=== PATIENT | male | born 1980 | race Caucasian/White ===

== ENCOUNTER 2017-06-30 20:21 | Emergency (ER) | payer OTHER ==
[2017-06-30] MEDS ORDERED: MORPHINE IM ONE (20:42)
[2017-06-30] MEDS ORDERED: ZOFRAN ODT PO ONE (20:42)
[2017-06-30 21:07] LABS: Basophils % (Auto) 0.3 % (0.0-1.8); Eosinophils % (Auto) 0.3 % (0.0-4.3); Hematocrit 45.5 % (35.5-45.6); Hemoglobin 15.3 gm/dl (11.8-15.2); Lymphocytes # (Auto) 3.2 K/mm3 (1.2-5.4); Lymphocytes % (Auto) 34.1 % (13.4-35.0); Mean Corpuscular HGB Conc 34 % (32-34); Mean Corpuscular Hemoglobin 31 pg (28-32); Mean Corpuscular Volume 92 fl (84-94); Monocytes # (Auto) 0.5 K/mm3 (0.0-0.8); Monocytes % (Auto) 5.1 % (0.0-7.3); Platelet Count 239 K/mm3 (140-440); Red Blood Count 4.95 M/mm3 (3.65-5.03); Red Cell Distribution Width 12.6 % (13.2-15.2)
[2017-06-30 21:18] LABS: BUN/Creatinine Ratio 18; Blood Urea Nitrogen 14 mg/dL (9-20); Calcium 9.1 mg/dL (8.4-10.2); Hemolysis Index 13
[2017-06-30 21:57] LABS: Bilirubin,Urine NEG (Negative); Blood,Urine NEG (Negative); Color,Urine Yellow (Yellow); Mucus,Urine FEW /HPF; Protein,Urine <15 mg/dL mg/dL (Negative)
--- NOTE | 2017-06-30 22:41 | Cat Scan Report ---
FINAL REPORT EXAM: CT THORACIC SPINE WO CON HISTORY: bilateral low back pain, 2d s/p fall TECHNIQUE: Standard CT thoracic spine obtained at 1.25 millimeter axial increments. Coronal and sagittal reconstruction was also performed. PRIORS: None. FINDINGS: The vertebral bodies are intact. There is no evidence for acute fracture. There is no evidence for paravertebral soft tissue swelling. Alignment is maintained. IMPRESSION: Negative CT of the thoracic spine.
--- NOTE | 2017-06-30 22:47 | Emergency Department Report ---
HPI - General Chief Complaint: Back Pain/Injury Time Seen by Provider: 06/30/17 20:27 - HPI HPI: The patient is 37-year-old male who presents for evaluation of low back pain and anterior pelvic pain. The patient reports falling 2 days ago sustaining injury to the back. He states that since his fall he has experienced moderate to severe, sharp pain, in the bilateral lower back and anterior groin, exacerbated with ambulation or bending over. The patient denies fever, chills, night sweats, saddle anesthesia, paresthesias, numbness or tingling in the legs , leg weakness, urine or bowel incontinence or retention, difficulty ambulating , or other focal neurological deficits. ED Past Medical Hx - Past Medical History Previous Medical History?: No - Surgical History Past Surgical History?: No - Medications Home Medications: Home Medications Medication Instructions Recorded Confirmed Last Taken Type Cephalexin [Keflex] 500 mg PO Q6HR #30 capsule 06/30/17 Unknown Rx HYDROcodone/APAP 7.5-325 [[place] 1 each PO Q8HR PRN #15 tablet 06/30/17 Unknown Rx 7.5-325 mg TAB] Ibuprofen [Motrin] 800 mg PO Q8HR PRN #15 tablet 06/30/17 Unknown Rx ED Review of Systems ROS: Stated complaint: BACK PAIN Other details as noted in HPI Constitutional: denies: fever ENT: denies: throat or neck pain Respiratory: denies: cough, shortness of breath Cardiovascular: denies: chest pain Endocrine: denies unexplained weight loss or gain Gastrointestinal: denies: abdominal pain, nausea Genitourinary: denies: dysuria Musculoskeletal: reports back pain denies: leg swelling Skin: denies: rash Neurological: denies: headache Hematological/Lymphatic: denies: easy bleeding or easy bruising Psych: denies sadness or hopelessness Physical Exam - Physical Exam Vital Signs: Vital Signs 06/30/17 20:37 Pulse Rate 88 Respiratory 18 Rate Blood Pressure 140/73 O2 Sat by Pulse 100 Oximetry Physical Exam: General: well-nourished, well-developed, no acute distress Head: Normocephalic, atraumatic Eyes: normal sclera ENT: Mucous membranes are pink and moist Neck: trachea midline, neck supple, No neck stiffness, no cervical adenopathy Respiratory: Breath sounds equal bilaterally, no wheezing, rales, or rhonchi Cardio: S1 and S2 present, no murmurs, rubs, gallops, capillary refill is brisk Abdomen: Normoactive bowel sounds, soft abdomen, suprapubic tenderness to palpation present Musc: Tenderness to palpation present to bilateral lumbar paraspinal musculature , pain is elicited with flexion at the hip, normal active range of motion at the hip intact, no spinous step-off or obvious deformity, ipsi-lateral and contralateral straight leg raise tests are negative. On extremity testing, compartments are soft and pliable, no obvious gross motor strength deficit, 5+ motor strength, including extension of the great toe bilaterally, no muscular atrophy, spasticity, fasciculations, or clonus, no obvious gross sensation deficit including web space between 1st and 2nd toes, reflexes 2+ & symmetric on DTR testing at the knee and ankle joints, distal pulses intact. Skin: No rash Neuro: no facial drooping, normal speech Psych: Normal affect ED Course Vital Signs 06/30/17 20:37 Pulse Rate 88 Respiratory 18 Rate Blood Pressure 140/73 O2 Sat by Pulse 100 Oximetry ED Medical Decision Making - Lab Data Result diagrams: 06/30/17 20:45 06/30/17 20:45 - Medical Decision Making The patient was seen and examined by myself. The patient is placed on a chief maintenance supervisor and continuous pulse ox. On initial evaluation, the patient was found to be in no distress. No findings on exam concerning for cauda equina syndrome, spinal stenosis, or epidural abscess. As the patient has no midline tenderness on exam, no neuro deficits, and no findings concerning for emergent etiology of their back pain, MRI imaging is not indicated at this time. The patient is given an IM dose of morphine for his pain. Lab results revealed elevated urinalysis WBC with positive leukocyte esterase, consistent with acute urinary tract infection. The patient is given Keflex for treatment of his urinary tract infection. CT scan thoracic and lumbar spines are negative for vertebral fracture, subluxation, or spinal canal or foraminal narrowing. X-ray of the pelvis is negative for acute fracture. The patient was reevaluated and reported that their pain significantly improved. The patient is stable for discharge with outpatient follow-up. The patient is given follow-up and return instructions. The patient expressed understanding and agreed with the plan. The patient is discharged in stable condition. Critical care attestation.: If time is entered above; I have spent that time in minutes in the direct care of this critically ill patient, excluding procedure time. ED Disposition Clinical Impression: Acute UTI (urinary tract infection), Acute bilateral low back pain without sciatica Disposition: TO HOME OR SELFCARE Is pt being admited?: No Does the pt Need Aspirin: No Condition: Stable Instructions: Urinary Tract Infection in Men (ED), Low Back Strain (ED), Acute Low Back Pain (ED) Additional Instructions: Please provide the patient with a wheelchair as needed until he is evaluated by the referred orthopedic surgeon, as his back pain is exacerbated with weightbearing or walking. Prescriptions: Cephalexin [Keflex] 500 mg PO Q6HR #30 capsule HYDROcodone/APAP 7.5-325 [[place] 7.5-325 mg TAB] 1 each PO Q8HR PRN #15 tablet PRN Reason: Pain Ibuprofen [Motrin] 800 mg PO Q8HR PRN #15 tablet PRN Reason: Pain Referrals: RIVERA HOPE MD [Staff Physician] - 3-5 Days Time of Disposition: 22:47 Print Language: THAI
--- NOTE | 2017-06-30 22:47 | Cat Scan Report ---
FINAL REPORT EXAM: CT LUMBAR SPINE WO CON HISTORY: bilateral low back pain, 2d s/p fall TECHNIQUE: Spiral high-resolution unenhanced 1.25 millimeter axial images were obtained through the lumbar spine. Sagittal and coronal plane are reconstructions were performed. PRIORS: None. FINDINGS: Counting reference: Lumbosacral junction. For the purposes of this report, L4-L5 is considered the level of the iliac crest. Bone marrow/ Fracture: No evidence for acute or chronic fracture is seen. No evidence of a lytic or blastic process in the visualized spine. Alignment: Alignment is anatomic. T12-L1: Canal and foramina are patent. L1-L2: Canal and foramina are patent. L2-L3: Canal and foramina are patent. L3-L4: Canal and foramina are patent. L4-L5: Canal and foramina are patent. L5-S1: Canal and foramina are patent. Paraspinal soft tissues: The paraspinal soft tissues show no evidence for paravertebral hematoma or soft tissue mass. Sacrum and iliac wings: Visualized portions of the sacrum and iliac wings appear intact without fracture. The presacral soft tissues are normal in appearance. IMPRESSION: 1. No evidence of acute fracture.
[2017-06-30] MEDS ORDERED: KEFLEX PO ONE (22:51)
[2017-06-30] MEDS ORDERED: NORCO 7.5/325 PO ONE (23:07)
[2017-06-30 23:33] VITALS: BP 132/70
--- NOTE | 2017-06-30 23:57 | XRay Report ---
FINAL REPORT PROCEDURE: XR PELVIS 1-2V TECHNIQUE: Pelvis radiograph, AP view. CPT 42016 HISTORY: bilateral low back and anterior groin pain COMPARISON: No prior studies are available for comparison. FINDINGS: Fracture(s): There is mild irregularity of the outlines of left femoral neck. A well-defined 6 millimeter ossific density is noted along the superior lateral margin of left acetabulum most likely representing os acetabuli.. Joint spaces: Normal . Soft tissues: Normal . Foreign bodies: None . Bone mineralization: Normal . IMPRESSION: There is mild irregularity of the left femoral neck. This is most likely secondary to positioning of the left leg. However nondisplaced subtle acute fracture cannot be excluded. Additional views of the left hip are recommended.
== END 2017-06-30 23:34 | disposition home or self-care (01) ==
LOC: ED 20:21 → EEVIPCON 20:21 → ED 23:34
DX: N39.0 Urinary tract infection, site not specified (principal)
CPT/HCPCS: 36415; 72128; 72131; 72170; 80048; 81001; 85025; 96372; 99284; J2270

== ENCOUNTER 2017-09-30 10:31 | Outpatient (CLI) | payer OTHER ==
--- NOTE | 2017-10-01 10:48 | Magnetic Resonance Report ---
MRI LOWER EXTREMITY JOINT LEFT HIP WITH AND WITHOUT CONTRAST INDICATION: Hip pain. Slipped and fell 2 weeks ago. COMPARISON: 06/30/2017 pelvis radiograph. FINDINGS: Multiplanar and multisequence MRI of the left hip performed before and after 15 ml Multihance intravenously. Intact left hip articulation and marrow signal. Laterally prominent femoral head margins creating femoral head asphericity bilaterally on the plain radiographs again noted. Left hip joint fluid minimally generous and greater than the left as on coronal series 3, image 17. Though assessment of the labrum limited due to lack of large joint effusion or intra-articular contrast, slight tear/partial detachment of superior labrum questioned as on coronal series 10, image 15. Normal muscle mass and signal, though approximately 2 cm segment of left obturator externus tendon near its insertion about the lesser trochanter suspicious for increased T2 signal as on axial series 5, image 18 with possible enhancement as on axial series 11, image 17. Normal remainder imaged pelvis. CONCLUSION: Left obturator externus tendinosis/sprain distally near the lesser trochanter and slight superior labral tear questioned in this patient with possible increased propensity for femoral acetabular impingement - cam type on the right and possibly combined cam-pincer on the left. Orthopedic correlation also suggested. Thank you for the opportunity to participate in this patient's care.
== END 2017-09-30 10:32 | disposition home or self-care (01) ==
LOC: MRI 10:31
PROVIDERS: ATTEND Family Medicine
DX: M25.552 Pain in left hip (principal); Z91.81 History of falling
CPT/HCPCS: 73723; A9577